=== PATIENT | female | born 1945 | race Caucasian/White ===

== ENCOUNTER 2022-06-25 06:12 | Day surgery (SDC) | payer OTHER ==
[~2022-06-25] VITALS: Ht 160 cm; Wt 40.4 kg
[2022-06-25] MEDS ORDERED: LIDOCAINE 2% 11 ML JELLY TP ONE (06:13)
[2022-06-25] MEDS ORDERED: LIDOCAINE 4% 50 ML SOLUTION TP ONE (06:13)
[2022-06-25] MEDS ORDERED: BENZOCAINE 20% 50 MCG/SPRAY 57 GM TP ONE (06:13)
[2022-06-25] MEDS ORDERED: SODIUM CHLORIDE 0.9% 1,000 ML IV ONE (06:30)
[2022-06-25 06:58] LABS: COVID AG,FIA SOURCE NASOPHARYNGEAL
[2022-06-25] MEDS ORDERED: SODIUM CHLORIDE 0.9% 1,000 ML ONE (07:09)
[2022-06-25] MEDS ORDERED: FentaNYL CITRATE PF 100 MCG/2 ML VIAL ONE (08:20)
[2022-06-25] MEDS ORDERED: MIDAZOLAM HCL 5 MG/ML VIAL ONE (08:20)
[2022-06-25] MEDS ORDERED: OMEP20 PO (09:37)
[2022-06-25] MEDS ORDERED: LOSA-381 PO (09:37)
[2022-06-25] MEDS ORDERED: LEVO50 PO (09:38)
[2022-06-25] MEDS ORDERED: MethylPREDNISolone SOD SUCC 125 MG/2 ML VIAL IVP ONE (09:45)
[2022-06-25] MEDS ORDERED: MethylPREDNISolone SOD SUCC 125 MG/2 ML VIAL ONE (10:07)
[2022-06-25] MEDS ORDERED: OXYGEN THERAPY IH SCH (20:00)
== END 2022-06-25 11:40 | disposition home or self-care (01) ==
LOC: SURGERY 06:12 → EDSEX 06:12 → SURGERY 11:40
PROVIDERS: ATTEND Internal Medicine Critical Care Medicine
DX: J38.4 Edema of larynx (principal); B37.0 Candidal stomatitis; Z20.822 Contact with and (suspected) exposure to COVID-19; Z98.890 Other specified postprocedural states; Z79.899 Other long term (current) drug therapy
CPT/HCPCS: 31623; 87556; 87206; 87101; 87220; 87070; 88108; 88305; 31624; 71045; 87015; 87149; 87426; J3010; J2930; J2250; Q9967; J7030; C9803; 87566; Z7610